=== PATIENT | male | born 1935 | race Caucasian/White ===

== ENCOUNTER 2017-07-04 10:10 | Outpatient (CLI) | payer MEDICARE, SELFPAY ==
[2017-07-04] VITALS (7 sets, daily range): BP systolic 141–181; BP diastolic 52–89; PULSE 54–62; RESP 14–21; TEMP 36; O2SAT 93–99
--- NOTE | 2017-07-04 10:13 | DI.RAD.S_ITS ---
PROCEDURE: PAIN L/S TRANSFORAMINAL INJECT INDICATIONS: Right L4/5 TRANSFORAMINAL INJECTION FINDINGS: Fluoroscopic spot filming was performed to verify placement of spinal needles at the right L4-L5 level(s), as labeled on the films. Appropriate location(s) of the needle tip(s) was confirmed by injection of iodinated contrast. Dictated by: Chris Brooks M.D. on 07/04/2017 at 17:17 Approved by: Chris Brooks M.D. on 07/04/2017 at 17:17
--- NOTE | 2017-07-04 10:55 | P.PCN_ITS ---
Procedures Date/Time Date of procedure: 07/04/17 Time of procedure: 11:41 General Procedure description: PREOP DIAGNOSIS 1. FORMAINAL STENOSIS WITH LE SYMPTOMS POST OP DIAGNOSIS 1. FORMAINAL STENOSIS WITH LE SYMPTOMS PROCEDURES 1. FLUOROSCOPICALLY GUIDED CONTRAST CONTROLLED TRANSFORAMINAL EPIDURAL STEROID INJECTION - RIGHT L4/5 TFESI PHYSICIAN: Delmer Ayala DO INDICATIONS: Delmer is referred by Dr. White for treatment of Foraminal Stenosis with Right LE Symptoms FINDINGS Foraminal Nerve Root Compression secondary to disc disease and facet hypertrophy DESCRIPTION OF PROCEDURE: Following denial of allergy and review of potential side effects and complications, including, but not necessarily limited to, infection, allergic reaction, local tissue breakdown, stroke, temporary or permanent nerve injury, paralysis, and possible , the patient indicated that the patient understood and agreed to proceed. An informed consent document was signed by the patient, witnessed by a nurse, and placed in the patient's chart. Additionally, other treatment options including medications, modalities, and physical therapy were reviewed with the patient. Per the patient request, IV conscious sedation was administered via 3mg of Versed to patient comfort. The patient's vital signs were monitored throughout the procedure by both the nurse and the physician without significant fluctuation. The patient remained conversant throughout the procedure. In the prone position following sterile prep and drape of the lumbar region, the Right L4/5 posterior neuroforamen was identified fluoroscopically. The skin was anesthetized via a 25-gauge 1.5-inch needle with 1% lidocaine solution. At this point, a 25-gauge 3.5-inch spinal needle was atraumatically introduced and advanced under fluoroscopic guidance through the posterior Right L4/5 neuroforamen to approximately the anterior aspect of the canal. Depth was confirmed on lateral view. Following negative aspiration, injection of approximately 1.5 cc of Isovue 200 under live fluoroscopy in the AP view confirmed excellent flow along the nerve root, into the epidural space without vascular or intrathecal uptake observed Radiological data, including multiple fluoroscopic views of the lumbosacral spine, reveal a spinal needle at the Left L4/5 posterior neuroforamen. Subsequent views show flow of contrast material flowing superiorly and inferiorly along the nerve root confirming epidural flow. Subsequently, a test dose of 1.5 cc of 1% lidocaine solution was administered and patient was observed for two minutes for signs or symptoms of complications , including abdominal pain, shortness of breath, bilateral upper or lower extremity weakness, nausea and vomiting, prior to steroid injection. At this point, a total of 3 cc or 20 mg of dexamethasone and 80mg Depo Medrol was injected without incident. The patient was then transferred to the recovery area where they were observed for an appropriate time after the injection. The patient reported a VAS score of 7 prior to the procedure and a post-procedure VAS of 0. Total Fluoroscopy Time: 20.9 seconds Total Conscious Sedation Time: 24min POST OP INSTRUCTIONS The patient was provided a Pain Log to continue to record their response to the target-specific procedure prior to follow-up visit with their referring physician. Additionally, specific post-injection care instructions and a contact number to our office were provided if concerns arise regarding possible complications associated with the procedure are suspected. Delmer Ayala DO Complications: none
[2017-07-04] MEDS: DEXAMETHASONE 10 MG/ML VIAL 20 MG INJ (11:15)
[2017-07-04] MEDS: IOPAMIDOL 15 ML VIAL INJ (11:15)
[2017-07-04] MEDS: MIDAZOLAM 5 MG/5 ML VIAL IV (11:15)
[2017-07-04] MEDS: methylPREDNISolone acetate 80 MG/ML VIAL INJ (11:15)
[2017-07-04] MEDS: BUPIVACAINE 0.25% (PF) 30 ML VIAL INJ (11:15)
== END 2017-07-04 12:15 ==
LOC: RAD 10:12
PROVIDERS: PCP Internal Medicine; Visit Provider Physical Medicine & Rehabilitation
DX: M51.36 Other intervertebral disc degeneration, lumbar region (principal); M99.73 Connective tissue and disc stenosis of intervertebral foramina of lumbar region
CPT/HCPCS: 64483; 99152; J0702; J1040; J1100; J2250

== ENCOUNTER 2017-08-22 12:48 | Outpatient (CLI) | payer MEDICARE, SELFPAY ==
[2017-08-22] VITALS (7 sets, daily range): BP systolic 100–172; BP diastolic 59–81; PULSE 60–67; RESP 16–18; TEMP 36.1; O2SAT 93–98
--- NOTE | 2017-08-22 12:49 | DI.RAD.S_ITS ---
PROCEDURE: PAIN L INTERLAMINAR/CAUDAL INJ INDICATIONS: Status post lumbar fusion with left lower extremity neurogen FINDINGS: Fluoroscopic spot filming was performed to verify placement of spinal needles in the lumbar spine as labeled on the films. Appropriate location(s) of the needle tip(s) was confirmed by injection of iodinated contrast. IMPRESSION: Fluoroscopy guidance for needle placement. Dictated by: Jocelyne Juárez M.D. on 08/22/2017 at 16:09 Approved by: Jocelyne Juárez M.D. on 08/22/2017 at 16:09
--- NOTE | 2017-08-22 14:19 | P.PCN_ITS ---
Procedures Date/Time Date of procedure: 08/22/17 Time of procedure: 14:16 General Procedure description: PROVIDER: Delmer Ayala DO Operative Note PREOP DIAGNOSIS 1. HNP WITH RADICULAR FEATURES, 2. MULTILEVEL CENTRAL STENOSIS, POST OP DIAGNOSIS 1. HNP WITH RADICULAR FEATURES, 2. MULTILEVEL CENTRAL STENOSIS, PROCEDURES 1. FLUORSCOPICALLY GUIDED CONTRAST CONTROLLED INTERLAMINAR EPIDURAL STEROID INJECTION - L4/5 PHYSICIAN: Delmer Ayala DO INDICATIONS Delmer is referred by Dr. White for treatment of Bilateral Foraminal Stenosis L >R LE symptoms. FINDINGS Multilevel Central Spinal Stenosis with Nerve Root Compression DESCRIPTION OF PROCEDURE Fluoroscopically guided, contrast-controlled L4/5 translaminar epidural steroid injection. Following denial of allergy and review of potential side effects and complications, including, but not necessarily limited to, infection, allergic reaction, local tissue breakdown, temporary as well as permanent nerve injury, paralysis, stroke and possible , the patient indicated that the patient understood and agreed to proceed. An informed consent document was signed by the patient, witnessed by a nurse, and placed in the patient's chart. Additionally, other treatment options including modalities, medications, and physical therapy were reviewed with the patient. After review of previous anaesthesic history and IV conscious sedation the patient was deemed safe to proceed with todays procedure with IV conscious sedation as ASA class II designation. Safety time-out was performed to confirm patient ID, procedure to be performed and site of procedure. IV sedation was accomplished with a combination of 3mg of Versed administered by the RN after DO order, titrated to patient comfort during the course of the procedure while the patient remained responsive to all verbal commands. In the prone position, following sterile prep and drape of the lumbar region, the L4/5 translaminar space was identified fluoroscopically. The skin was anesthetized via a 25-gauge, 1.5-inch needle with 1% lidocaine solution. At this point, a 22-gauge short bevel spinal needle was atraumatically introduced and advanced under fluoroscopic guidance into the region of the L4/5 translaminar space. Depth was confirmed on lateral view. Radiological data, including multiple fluoroscopic views of the lumbar spine, reveal a spinal needle at the L4/5 translaminar space. Lateral views then show placement of the needle in the epidural space. Subsequent views show contrast material flowing superiorly and inferiorly in the epidural space. No vascular or intrathecal uptake is observed. At this point, using loss of resistance technique with saline and air, the epidural space was entered. This was confirmed following negative aspiration with injection of approximately 1.5 cc of Isovue 200, showing excellent epidural flow without vascular or intrathecal uptake. At this point, 1 cc of 1 % lidocaine solution combined with 3 cc or 20 mg of dexamethasone and 80mg Depo medrol was injected without incident. The patent tolerated the procedure without signs of symptoms of complications prior to transfer to the recovery area for further monitoring. The patient was then transferred to the recovery area where they were observed for an appropriate period of time after the injection. The patient reported a VAS score of 6 prior to the procedure and a post-procedure VAS of 0. Total Fluoroscopy Time: 11.8 seconds Total Conscious Sedation Time: 24min POST OP INSTRUCTIONS The patient was provided a Pain Log to continue to record their response to the target-specific procedure prior to follow-up visit with their referring physician. Additionally, specific post-injection care instructions and a contact number to our office were provided if concerns arise regarding possible complications associated with the procedure are suspected. Delmer Ayala DO
[2017-08-22] MEDS: MIDAZOLAM 5 MG/5 ML VIAL IV (14:23)
[2017-08-22] MEDS: BUPIVACAINE 0.25% (PF) 30 ML VIAL INJ (14:30)
[2017-08-22] MEDS: methylPREDNISolone acetate 80 MG/ML VIAL INJ (14:30)
[2017-08-22] MEDS: DEXAMETHASONE 10 MG/ML VIAL 20 MG INJ (14:30)
[2017-08-22] MEDS: IOPAMIDOL 15 ML VIAL 3 ML INJ (14:30)
== END 2017-08-22 15:15 ==
LOC: RAD 12:49
PROVIDERS: PCP Internal Medicine; Visit Provider Physical Medicine & Rehabilitation
DX: M51.16 Intervertebral disc disorders with radiculopathy, lumbar region (principal); M48.061 Spinal stenosis, lumbar region without neurogenic claudication; Z98.1 Arthrodesis status
CPT/HCPCS: 62323; 99152; J1040; J1100; J2250

== ENCOUNTER → 2017-08-23 10:11 | Outpatient (CLI) | payer MEDICARE, SELFPAY ==
--- NOTE | 2017-08-23 13:25 | DI.ECHO.S_ITS ---
:Name: KENDALL FRIED Study Date: 08/23/2017 Height: 66 in : :[facility] Exam Location: [facility] Weight: 222 lb : : Gender: Male BSA: 2.1 m2 : :: 1935 Age: 82 yrs BP: 152/60 mmHg: :Reason For Study: TYPING SECTION CHIEF : :Ordering Physician: Geovanna Bach : :[place] Performed By: Tamara Burton : :Referring: Singh White : + + Interpretation Summary 1) Upper normal left ventricular size with mild concentric left ventricular hypertrophy and normal systolic function (EF 60-65)%. 2) Normal right ventricular size and function. 3) The left atrium is severely dilated. 4) There is mild to moderate aortic regurgitation. 5) Aortic root and ascending aorta are moderately dilated at 4.7cm. 6) Compared to the Echo done 10/31/2016, LV is less dilated and EF has improved from 45-50% to 60-65% on this study. Procedure: A two-dimensional transthoracic echocardiogram with color flow and Doppler was performed. The study quality was technically adequate. Comparison is made with the echocardiogram of 10/31/2016. The heart rate ranged between 48-63 bpm during the study. Left Ventricle: There is mild concentric left ventricular hypertrophy. Left ventricular size is at the upper limits of normal. The ejection fraction is estimated to be 60-65%. Left ventricular systolic function is normal without focal wall motion abnormalities. Right Ventricle: The right ventricle is normal in size and function. Atria: The left atrium is severely dilated. The right atrium is mildly dilated. There is no Doppler evidence for an interatrial shunt. Mitral Valve: The mitral valve leaflets appear thickened, but open well. There is trace mitral regurgitation. Aortic Valve: The aortic valve is trileaflet. The aortic valve opens well. There is mild aortic valve sclerosis. There is no aortic valve stenosis. There is mild to moderate aortic regurgitation. Tricuspid Valve: The tricuspid valve leaflets are thin and pliable. There is mild tricuspid regurgitation. The right ventricular systolic pressure is estimated at 31 mmHg assuming a right atrial pressure of 3 mm Hg. Pulmonic Valve: The pulmonic valve is not well visualized. Great Vessels: The aortic root is moderately dilated. The ascending aorta is moderately enlarged. The aortic arch is mildly enlarged. The pulmonary is not well visualized. The IVC is of normal diameter and collapses greater than 50% with a sniff. This suggests a low right atrial pressure of 3 mm Hg. Pericardium/ Pleura There is no pericardial effusion. There is no pleural effusion. MMode/2D Measurements & Calculations LVIDd: 6.0 cm LVOT diam: 2.6 cm LVIDs: 3.4 cm Ao root diam: 4.7 cm FS: 44.2 % asc Aorta Diam: 4.7 cm IVSd: 1.2 cm Ao Arch Diam (distal): 3.2 cm LVPWd: 1.2 cm LV baker. diameter/BSA (cm/m^2): 2.9 LV sys. diameter/BSA (cm/m^2): 1.6 LA A2 area: 26.9 cm2 RA long axis: 7.0 cm LA A4 area: 33.5 cm2 RA area: 24.6 cm2 LA length (vol): 7.8 cm RA vol: 73.7 ml LA vol: 98.5 ml RA : 35.3 ml/m2 LA vol index: 47.1 ml/m2 IVC diam: 1.7 cm RVD1 (basal): 3.4 cm TAPSE: 1.9 cm Doppler Measurements & Calculations Ao V2 max: 199.5 cm/sec LVOT Max Jacobo: 139.4 cm/sec Ao V2 mean: 140.2 cm/sec LV V1 max P.8 mmHg Ao max P.9 mmHg LV V1 VTI: 34.6 cm Ao mean P.5 mmHg GENESIS(I,D): 3.9 cm2 Ao V2 VTI: 46.6 cm GENESIS(V,D): 3.7 cm2 sev ratio: 0.74 GENESIS indexed to BSA (cm^2/m^2): 1.9 MV E max jacobo: 33.8 cm/sec TR max jacobo: 265.0 cm/sec MV A max jacobo: 94.7 cm/sec TR max P.1 mmHg MV E/A: 0.36 Med Peak E' Jacobo: 3.4 cm/sec E/E' med: 10.0 Lat Peak E' Jacobo: 4.6 cm/sec E/E' lat: 7.3 E/e' average: 8.7 MV dec time: 0.28 sec _ Reading Physician:01:25 PM
== END ==
PROVIDERS: PCP Internal Medicine; Visit Provider Internal Medicine Cardiovascular Disease
DX: I42.0 Dilated cardiomyopathy (principal); I35.1 Nonrheumatic aortic (valve) insufficiency
CPT/HCPCS: 93306

== ENCOUNTER 2017-09-13 10:30 | Outpatient (CLI) | payer MEDICARE, SELFPAY ==
[2017-09-13] VITALS (9 sets, daily range): BP systolic 140–175; BP diastolic 39–93; PULSE 48–58; RESP 16–18; TEMP 36.1; O2SAT 95–98
--- NOTE | 2017-09-13 10:33 | DI.RAD.S_ITS ---
PROCEDURE: PAIN L/S FACET INJ/BLK 1ST COLTEN COMPARISON: None. INDICATIONS: Lumbosacral spondylosis status post fusion FINDINGS: Right-sided L3-4 and L4-5 facet needle tip localization is documented IMPRESSION: Successful facet joint localization on the right at L3-4 and L4-5-4 reported anticipated epidural steroid injection. Dictated by: Clemente Teixeira M.D. on 09/13/2017 at 13:39 Approved by: Clemente Teixeira M.D. on 09/13/2017 at 13:43
--- NOTE | 2017-09-13 11:38 | PM.PROC.1 ---
Procedures Date/Time Date of procedure: 09/13/17 Time of procedure: 11:38 General Procedure description: PREOP DIAGNOSIS 1. FACET ARTHROPATHY 2. AXIAL LBP 3. MULTILEVEL DDD POST OP DIAGNOSIS 1. FACET ARTHROPATHY 2. AXIAL LBP 3. MULTILEVEL DDD PROCEDURES 1. FLUORSCOPICALLY GUIDED CONTRAST CONTROLLED FACET JOINT INJECTIONS BILATERAL L3/4, L4/5 PHYSICIAN: Delmer Ayala DO INDICATIONS: Delmer is referred by for treatment of Axial LBP FINDINGS Multilevel Facet Arthropathy with Clinically significant axial LBP DESCRIPTION OF PROCEDURE Fluoroscopically guided, contrast-controlled bilateral L3/4, L4/5 facet joint injections. Following denial of allergy and review of potential side effects and complications, including, but not necessarily limited to, infection, allergic reaction, local tissue breakdown, stroke, temporary or permanent nerve injury, paralysis, and possible , the patient indicated that the patient understood and agreed to proceed. An informed consent document was signed by the patient, witnessed by a nurse, and placed in the patient's chart. Additionally, other treatment options including medications, modalities, and physical therapy were reviewed with the patient. After review of previous anaesthesic history and IV conscious sedation the patient was deemed safe to proceed with todays procedure with IV conscious sedation as ASA class II designation. Safety time-out was performed to confirm patient ID, procedure to be performed and site of procedure. IV sedation was accomplished with a combination of 3mg of Versed was administered by the RN after DO order, titrated to patient comfort during the course of the procedure while the patient remained responsive to all verbal commands. In the prone position, following sterile prep and drape of the lumbar region, the posterior aspect of the L3/4, L4/5 facet joints were identified fluoroscopically. The skin was anesthetized via a 25-gauge 1.5-inch needle with 1% lidocaine solution into the corresponding facet joints. At this point, a 22-gauge 3.5-inch spinal needle was atraumatically introduced and advanced under fluoroscopic guidance into the corresponding facet joints. Following negative aspiration, injections of approximately 0.2-cc of Isovue 200 confirmed interarticular placement without vascular uptake. The identical procedure was then performed at the L3/4, L4/5 facet joints on the left. Radiological data, including multiple fluoroscopic views of the lumbosacral spine, reveal a spinal needle at the L3/4, L4/5 facet joints bilaterally. Subsequent views show flow of contrast material both superiorly and inferiorly within the joint space without vascular or intrathecal uptake. At this point, a total of 0.5 cc including a mixture of 0.25 cc Marcaine and 0.25 cc betamethasone was injected without complication into each of the corresponding facet joints. The procedure tolerated the procedure well without signs or symptoms of complications prior to transfer to the recovery area continued monitoring without incident. The patient was then transferred to the recovery area where they were observed for an appropriate period of time after the injection. The patient reported a VAS score of 7 prior to the procedure and a post-procedure VAS of 0. Total Fluoroscopy Time: 20.3 seconds Total Conscious Sedation Time: 24min POST OP INSTRUCTIONS The patient was provided a Pain Log to continue to record their response to the target-specific procedure prior to follow-up visit with their referring physician. Additionally, specific post-injection care instructions and a contact number to our office were provided if concerns arise regarding possible complications associated with the procedure are suspected. Delmer Ayala, Complications: none
[2017-09-13] MEDS: MIDAZOLAM 5 MG/5 ML VIAL IV (11:50)
[2017-09-13] MEDS: BUPIVACAINE 0.5% (PF) VIAL 5 ML INJ (12:00)
[2017-09-13] MEDS: LIDOCAINE 1% 20 ML INJ 10 ML INJ (12:00)
[2017-09-13] MEDS: IOPAMIDOL 15 ML VIAL 3 ML INJ (12:00)
[2017-09-13] MEDS: BETAMETHASONE 30 MG/5 ML MDV 12 MG INJ (12:01)
== END 2017-09-13 12:52 | disposition home or self-care (01) ==
LOC: RAD 10:32
PROVIDERS: PCP Internal Medicine; Visit Provider Physical Medicine & Rehabilitation
DX: M47.816 Spondylosis without myelopathy or radiculopathy, lumbar region (principal); M51.36 Other intervertebral disc degeneration, lumbar region; M54.5 Low back pain; Z98.1 Arthrodesis status
CPT/HCPCS: 64493; 64494; 99152; J0702; J2250

== ENCOUNTER 2018-07-19 08:35 | Outpatient (CLI) | payer MEDICARE, SELFPAY ==
[2018-07-19] VITALS (8 sets, daily range): BP systolic 145–185; BP diastolic 50–88; PULSE 56–63; RESP 16–20; TEMP 35.9; O2SAT 92–97
--- NOTE | 2018-07-19 08:37 | DI.RAD.S_ITS ---
PROCEDURE: PAIN L/S FACET INJ/BLK 1ST COLTEN COMPARISON: None. INDICATIONS: SPONDYLOSIS FINDINGS: 6 intraoperative fluoroscopy images demonstrate needle placement under fluoroscopy. IMPRESSION: Fluoroscopy for pain management. Dictated by: Jocelyne Juárez M.D. on 07/19/2018 at 12:25 Approved by: Jocelyne Juárez M.D. on 07/19/2018 at 12:25
[2018-07-19] MEDS: MIDAZOLAM 5 MG/5 ML VIAL IV (09:44)
[2018-07-19] MEDS: fentaNYL 100 MCG/2 ML INJ 50 MCG IV (09:44)
[2018-07-19] MEDS: IOPAMIDOL 15 ML VIAL 3 ML INJ (09:55)
[2018-07-19] MEDS: LIDOCAINE 1% 20 ML INJ 10 ML INJ (09:55)
[2018-07-19] MEDS: BUPIVACAINE 0.5% (PF) VIAL 2 ML INJ (09:57)
[2018-07-19] MEDS: BETAMETHASONE 30 MG/5 ML MDV 12 MG INJ (09:57)
--- NOTE | 2018-07-19 09:59 | PC.NURSE ---
pt tolerated procedure well. Pt able to get off the table with standby assist. Transferred pt awake and alert via wheelchair to pre procedure room for continued monitoring with Gilda YUAN.
--- NOTE | 2018-07-19 10:06 | PM.PROC.1 ---
Procedures Date/Time Date of procedure: 07/19/18 Time of procedure: 10:06 General Procedure description: POST OP DIAGNOSIS 1. FACET ARTHROPATHY PROCEDURES 1. BILATERAL L3, L4 AND L5 MB BLOCKS PHYSICIAN: Delmer Ayala DO INDICATIONS Delmer is referred by Dr. White for treatment of Bilateral Axial LBP. DESCRIPTION OF PROCEDURE Fluoroscopically guided, contrast-controlled bilateral L3, L4 AND L5 medial branch blocks with 0.5cc of 0.5% Marcaine. Following review of allergy and review of potential side effects and complications, including, but not necessarily limited to, infection, allergic reaction, local tissue breakdown, nerve injury, paralysis, stroke and possible , the patient indicated that the patient understood and agreed to proceed. An informed consent document was signed by the patient, witnessed by a nurse, and placed in the patient's chart. After review of previous anaesthesic history and IV conscious sedation the patient was deemed safe to proceed with todays procedure with IV conscious sedation as ASA class II designation. Safety time-out was performed to confirm patient ID, procedure to be performed and site of procedure. IV sedation was accomplished with a combination of 3mg of Versed and 50mcg of Fentanyl was administered by the RN after DO order, titrated to patient comfort during the course of the procedure while the patient remained responsive to all verbal commands In the prone position, following sterile prep and drape of the lumbar region, the right L3, L4 AND L5 anatomical location of the medial branch of the dorsal ramus was identified fluoroscopically. Subsequently an anesthetic skin wheal using 1% lidocaine solution was initiated at each of the anatomical spots. Subsequently then a 22-gauge 3.5-inch spinal needle was atraumatically introduced and advanced under fluoroscopic guidance at each of the corresponding sites at the right L3, L4 AND L5 MB. After negative aspiration, 0.2 cc of Isovue 200 was injected, confirming placement without vascular or intrathecal uptake. Subsequently then 0.5 cc of 0.5% Marcaine solution was injected at each of the corresponding sites at the Right L3, L4 AND L5 medial branch locations. The identical procedure was replicated on the left. The patient tolerated the procedure well without signs or symptoms of complications. The patient tolerated the procedure well without signs or symptoms of complications prior to transfer to the recovery area continued monitoring without incident. Post-procedure, the patient was monitored initiating provocative activities to measure the amount of relief from block of the facetogenic pain. The patient reported a VAS of 7 prior to the procedure and a post-procedure VAS of 1. It has been a pleasure to assist in the diagnostic and therapeutic care of your patient. Total Fluoroscopy Time: 24.8 seconds Total Conscious Sedation Time: 24min POST OP INSTRUCTIONS The patient was provided with a Pain Log to complete over the next several hours and subsequent days prior to the patient's follow up with the ordering physician. If the patient has hotel services sales representative relief to the solution applied, then they may be a candidate for medial branch rhizotomy. The patient is aware, was provided, once again, with a Pain Log and will follow up with the referring physician for review and clinical correlation Delmer Ayala DO Complications: none
--- NOTE | 2018-07-19 10:10 | PC.NURSE ---
ACCEPTED CARE OF PT IN POST PROC AREA IN STABLE CONDITION
== END 2018-07-19 10:39 | disposition home or self-care (01) ==
PROVIDERS: PCP Internal Medicine; Visit Provider Physical Medicine & Rehabilitation
DX: M47.816 Spondylosis without myelopathy or radiculopathy, lumbar region (principal)
CPT/HCPCS: 64493; 64494; 99152; J0702; J2250; J3010

== ENCOUNTER 2018-08-28 07:50 | Outpatient (CLI) | payer MEDICARE, SELFPAY ==
[2018-08-28] VITALS (11 sets, daily range): BP systolic 148–197; BP diastolic 50–87; PULSE 57–60; RESP 16–18; TEMP 36.2; O2SAT 92–96
--- NOTE | 2018-08-28 07:52 | DI.RAD.S_ITS ---
PROCEDURE: PAIN L/S MED/LAT N RFA INDICATIONS: SPINAL STENOSIS FINDINGS: Fluoroscopic spot filming was performed to verify placement of spinal needles at the L3, L4 and L5 level(s), as labeled on the films. Appropriate location(s) of the needle tip(s) was confirmed by injection of iodinated contrast. IMPRESSION: Fluoroscopy support for poor management. Dictated by: Jocelyne Juárez M.D. on 08/28/2018 at 10:36 Approved by: Jocelyne Juárez M.D. on 08/28/2018 at 10:36
--- NOTE | 2018-08-28 08:41 | P.PCN_ITS ---
Procedures Date/Time Date of procedure: 08/28/18 Time of procedure: 08:40 General Procedure description: PREOP DIAGNOSIS 1. RECALCITRANT FACET ARTHROPATHY, POST OP DIAGNOSIS 1. RECALCITRANT FACET ARTHROPATHY PROCEDURES 1. BILATERAL L3, L4 AND L5 MEDIAL BRANCH RADIOFREQUENCY NEUROTOMY PHYSICIAN: Delmer Ayala DO INDICATIONS: Delmer is referred by Dr. White for treatment of facet arthropathy. DESCRIPTION OF PROCEDURE Bilateral L3, L4 and L5 medial branch radiofrequency neurotomy The patient is well known to this clinic having undergone previous facet injections with good but temporary relief. The patient has experienced appropriate, concordant relief with previous facet and median branch blocks but the patient's pain has been recalcitrant to further conservative measures. Therefore, based upon the patient's relief and persistent symptoms, the patient is considered an appropriate candidate for facet rhizotomy. All of the patient's questions regarding the risks versus benefits of the procedure, including, but n ot limited to, bleeding, infection, temporary as well as lasting nerve injury, paralysis, stroke, and , as well treatment alternatives were answered to satisfaction. After obtaining informed consent, denial of pertinent drug allergies, as well as being made aware of the potential risks of bleeding, infection, spinal cord trauma, paralysis, temporary and permanent nerve damage, seizure, stroke, and possible , the patient was brought to the fluoroscopy suite and positioned prone on the fluoroscopy table. The lumbar region was prepped with Betadine and covered with a fenestrated drape in the usual sterile fashion. Appropriate monitors applied including pulse oximeter, pulse, and blood pressure for regular monitoring throughout the procedure. After review of previous anaesthesic history and IV conscious sedation the patient was deemed safe to proceed with todays procedure with IV conscious sedation as ASA class II designation. Safety time-out was performed to confirm patient ID, procedure to be performed and site of procedure. IV sedation was accomplished with a combination of 2mg of Versed and 50mcg of Fentanyl administered by the RN after DO order, titrated to patient comfort during the course of the procedure while the patient remained responsive to all verbal commands. After local infiltration using 1% lidocaine, under fluoroscopic guidance, a 10- cm RF insulated needle with a 10-mm active tip was positioned parallel to the junction of the right the superior articulating process where the L5 medial branch resides. Needle placement was confirmed with sensory stimulation at 50 Hz, with motor stimulation of .5v on the right which produced local stimulation without radicular component. The stimulation was then increased to 1.5v with, once again, only local multifidus stimulation without radicular component. This was then followed by two discreet lesions performed at 80 degrees Celsius for 90 seconds each. The needle was then removed and the identical procedure was performed along the length of the right L4 medial branch with motor stimulation at .7v on the right. The identical procedure was once again performed along the length of the right L3 and medial branch with motor stimulation of .5v on the right. The identical procedures were repeated on the left. The patient tolerated the procedure well without signs or symptoms of complicat ions prior to transfer to the recovery area continued monitoring without incident. The patient was then transferred to the recovery area where they were observed for an appropriate period of time after the injection. The patient reported a VAS score of 9 prior to the procedure and a post-procedure VAS of 0. Total Fluoroscopy Time: 22.7 seconds Total Conscious Sedation Time: 34min POST OP INSTRUCTIONS The patient was provided a Pain Log to continue to record the patient's response to the target-specific procedure prior to the patient's follow-up visit with the referring physician. Additionally, specific post-injection care instructions and a contact number to our office were provided if concerns arise regarding possible complications associated with the procedure are suspected. Delmer Ayala DO
[2018-08-28] MEDS: fentaNYL 100 MCG/2 ML INJ 50 MCG IV (08:46)
[2018-08-28] MEDS: MIDAZOLAM 5 MG/5 ML VIAL IV (08:46)
[2018-08-28] MEDS: LIDOCAINE 1% 20 ML INJ 10 ML INJ (08:55)
[2018-08-28] MEDS: BUPIVACAINE 0.5% (PF) VIAL 2 ML INJ (08:55)
[2018-08-28] MEDS: BETAMETHASONE 30 MG/5 ML MDV 12 MG INJ (08:55)
--- NOTE | 2018-08-28 09:25 | PC.NURSE ---
ASSISTING PT OFF TABLE AND TRANSPORTING TO POST PROC AREA IN STABLE CONDITION
--- NOTE | 2018-08-28 09:30 | PC.NURSE ---
Pt arrived from procedure awake and alert and able to move from W/C to Chair with standby assist. Resumed monitoring from Gilda YUAN.
== END 2018-08-28 09:54 ==
LOC: RAD 07:52
PROVIDERS: PCP Internal Medicine; Visit Provider Physical Medicine & Rehabilitation
DX: M48.061 Spinal stenosis, lumbar region without neurogenic claudication (principal); M47.817 Spondylosis without myelopathy or radiculopathy, lumbosacral region
CPT/HCPCS: 64635; 64636; 99152; 99153; J0702; J2250; J3010

== ENCOUNTER → 2018-09-12 12:25 | Outpatient (CLI) | payer MEDICARE, SELFPAY ==
--- NOTE | 2018-09-12 | DI.ECHO.S_ITS ---
[facility]---------+ [facility] +---------+ : : [address] : [place] : : : : [id number] : : : : Phone: [phone] +---------+ Echocardiogram Report + + :Name: KENDALL FRIED Study Date: 09/12/2018 Height: 66 in : :[facility] Exam Location: [facility] Weight: 227 lb : : Gender: Male BSA: 2.1 m2 : :: 1935 Age: 83 yrs BP: 168/55 mmHg: :Reason For Study: DISORDERS OF ARTERIES : : Performed By: Power Herrera : :Referring: ANDERS DALAL : + + Interpretation Summary 1) Mildly enlarged left ventricle with normal systolic function (EF 55-60%). 2) Normal right ventricular size and function. 3) The left atrium is severely dilated. 4) There is mild to moderate aortic regurgitation. 5) The aortic root is moderately dilated at 4.8cm. The ascending aorta is moderately enlarged at 4.7cm. 6) Compared to the Echo done 08/23/2017, no significant change. Procedure: A two-dimensional transthoracic echocardiogram with color flow and Doppler was performed. The study quality was technically difficult. Comparison is made with the echocardiogram of 08/23/17. The patient was in normal sinus rhythm during the exam. The patient had occasional PVCs during the exam. Left Ventricle: The left ventricle is mildly dilated. Left ventricular wall thickness is mildly increased. The ejection fraction is estimated to be 55- 60%. Left ventricular systolic function is normal without focal wall motion abnormalities. Right Ventricle: The right ventricle is normal in size and function. Atria: The left atrium is severely dilated. The right atrium is moderately dilated. The interatrial septum is intact with no evidence for an atrial septal defect. Mitral Valve: The mitral valve is normal in structure and function. There is trace mitral regurgitation. Aortic Valve: The aortic valve is not well visualized. There is no aortic valve stenosis. There is mild to moderate aortic regurgitation. Tricuspid Valve: The tricuspid valve is normal in structure and function. There is trace tricuspid regurgitation. The right ventricular systolic pressure is estimated to be at least 30 mmHg based on an estimated right atrial pressure of 3 mm Hg. Pulmonic Valve: The pulmonic valve is not well seen, but is grossly normal. There is trace pulmonic regurgitation. Great Vessels: The aortic root is moderately dilated. The ascending aorta is moderately enlarged. The pulmonary artery is normal size. The IVC is of normal diameter and collapses greater than 50% with a sniff. This suggests a low right atrial pressure of 3 mm Hg. Pericardium/ Pleura There is no pericardial effusion. There is no pleural effusion. MMode/2D Measurements & Calculations LVIDd: 6.7 cm LVOT diam: 2.4 cm LVIDs: 5.0 cm Ao root diam: 4.8 cm FS: 25.3 % Aortic Jxn: 4.4 cm EPSS: 0.79 cm asc Aorta Diam: 4.7 cm IVSd: 1.4 cm Ao Arch Diam (Prox Trans): 2.8 cm LVPWd: 1.1 cm LV baker. diameter/BSA (cm/m^2): 3.2 LV sys. diameter/BSA (cm/m^2): 2.4 LA A2 area: 36.9 cm2 RA long axis: 6.9 cm LA A4 area: 26.5 cm2 RA area: 27.8 cm2 LA length (vol): 6.6 cm RA vol: 95.3 ml LA vol: 126.3 ml RA : 45.2 ml/m2 LA vol index: 59.8 ml/m2 IVC diam: 1.7 cm Doppler Measurements & Calculations Ao V2 max: 208.5 cm/sec LVOT Max Jacobo: 116.7 cm/sec Ao V2 mean: 156.1 cm/sec LV V1 max P.4 mmHg Ao max P.4 mmHg LV V1 VTI: 31.6 cm Ao mean P.7 mmHg GENESIS(I,D): 3.2 cm2 Ao V2 VTI: 45.0 cm GENESIS(V,D): 2.6 cm2 sev ratio: 0.70 GENESIS indexed to BSA (cm^2/m^2): 1.5 AI P1/2t: 466.5 msec AI dec slope: 263.3 cm/sec2 MV E max jacobo: 28.3 cm/sec TR max jacobo: 257.2 cm/sec MV A max jacobo: 88.7 cm/sec TR max P.5 mmHg MV E/A: 0.32 PA V2 max: 103.8 cm/sec Med Peak E' Jacobo: 3.6 cm/sec PA V2 mean: 79.3 cm/sec E/E' med: 7.8 PA mean P.7 mmHg Lat Peak E' Jacobo: 4.4 cm/sec PA pr(Accel): 35.7 mmHg E/E' lat: 6.4 PA Accel Time: 0.10 sec E/e' average: 7.1 MV dec time: 0.13 sec SV(LVOT): 145.3 ml Reading Physician:02:57 PM
--- NOTE | 2018-09-12 12:27 | DI.RAD.S_ITS ---
PROCEDURE: XR HIP W PEL IF DONE LT MIN 4V INDICATIONS: right hip pain TECHNIQUE: AP pelvis with lateral view(s) of the bilateral hip(s), 3 views total. COMPARISON: [facility], XA, PAIN L/S MED/LAT N RFA, 08/28/2018, 8:54. FINDINGS: Bones: No fractures or dislocations. Note is made of a symmetric minimal degree of hip joint osteoarthritis. Prior spine fusion between L5-S1 appears present, partially visualized. Pelvic ring appears intact. No suspicious bony lesions. Soft tissues: The visualized bowel gas pattern is normal. No suspicious soft tissue calcifications. IMPRESSION: No trauma to the pelvis or hips appears present. Minimal degenerative hip joint osteoarthritis bilaterally. Prior spine fusion procedure at the L5-S1 area of the lumbosacral spine. Dictated by: Clemente Teixeira M.D. on 09/12/2018 at 13:40 Approved by: Clemente Teixeira M.D. on 09/12/2018 at 13:41
--- NOTE | 2018-09-12 12:27 | DI.RAD.S_ITS ---
PROCEDURE: XR KNEE RT 3V INDICATIONS: right knee pain TECHNIQUE: 3 views of the knee were acquired. COMPARISON: [facility], , KNEE 1-2 VIEWS RIGHT, 04/04/2017, 13:27. FINDINGS: Bones: No fractures or dislocations but there is a finding of medial compartment right knee hemiarthroplasty.. No suspicious bony lesions. Soft tissues: No joint effusion. No suspicious soft tissue calcifications. IMPRESSION: Medial right knee hemiarthroplasty procedure. Dictated by: Clemente Teixeira M.D. on 09/12/2018 at 13:41 Approved by: Clemente Teixeira M.D. on 09/12/2018 at 13:41
== END ==
PROVIDERS: PCP Internal Medicine; Visit Provider Internal Medicine Cardiovascular Disease
DX: I35.1 Nonrheumatic aortic (valve) insufficiency (principal); I77.89 Other specified disorders of arteries and arterioles; M25.561 Pain in right knee; M25.551 Pain in right hip; Z98.1 Arthrodesis status; Z96.651 Presence of right artificial knee joint
CPT/HCPCS: 73522; 73562; 93306

== ENCOUNTER → 2019-03-12 14:12 | Outpatient (CLI) | payer MEDICARE, SELFPAY ==
--- NOTE | 2019-03-12 | DI.ECHO.S_ITS ---
[facility] +---------+ [facility] +---------+ : : [address] : [place] : : : : [id number] : : : : Phone: [phone]+ Echocardiogram Report + + :Name: KENDALL FRIED Study Date: 03/12/2019 Height: 66 in : :[facility] Weight: 230 lb : : Gender: Male BSA: 2.1 m2 : :: 1935 Age: 83 yrs BP: 130/68 mmHg: :Reason For Study: other specified disorders of arteries and : :arteriols : :Ordering Physician: Anders Bach : :[place] Performed By: BINF : :Referring: ANDERS DALAL : + + Interpretation Summary 1) Mildly enlarged left ventricle with normal systolic function (EF 60-65%). 2) Normal right ventricular size and function. 3) There is mild to moderate aortic regurgitation. 4) The ascending aorta is moderately enlarged at 4.7cm. 5) Compared to the Echo done 09/12/2018, no significant change. Procedure: The study quality was technically adequate. A two-dimensional transthoracic echocardiogram with color flow and Doppler was performed. Comparison is made with the echocardiogram of 09/12/2018. The patient was in normal sinus rhythm during the exam. Left Ventricle: The left ventricle is mildly dilated. Left ventricular wall thickness is mildly increased. The ejection fraction is estimated to be 60- 65%. Diastolic function could not be accurately assessed due to unobtainable data. Right Ventricle: The right ventricle is normal size. Visually normal systolic function. Atria: The left atrium is moderately dilated. The right atrium is mildly dilated. There is no Doppler evidence for an interatrial shunt. Mitral Valve: The mitral valve leaflets are slightly calcified. There is trace mitral regurgitation. Aortic Valve: The aortic valve is trileaflet. The aortic valve opens well. There is no aortic valve stenosis. There is mild to moderate aortic regurgitation. Tricuspid Valve: The tricuspid valve is normal in structure and function. There is trace tricuspid regurgitation. Pulmonary artery pressures cannot be estimated because of the lack of a measurable TR jet velocity. Pulmonic Valve: The pulmonic valve is not well visualized. There is trace pulmonic regurgitation. Great Vessels: The aortic root is mildly dilated. The ascending aorta is moderately enlarged. The IVC is of normal diameter and collapses greater than 50% with a sniff. This suggests a low right atrial pressure of 3 mm Hg. Pericardium/ Pleura There is no pericardial effusion. MMode/2D Measurements & Calculations LVIDd: 6.4 cm LVOT diam: 2.3 cm LVIDs: 4.0 cm Ao root diam: 3.8 cm FS: 37.4 % asc Aorta Diam: 4.7 cm IVSd: 1.1 cm Ao Arch Diam (Prox Trans): 4.1 cm LVPWd: 1.2 cm LV baker. diameter/BSA (cm/m^2): 3.0 LV sys. diameter/BSA (cm/m^2): 1.9 LA A2 area: 27.3 cm2 RA long axis: 6.3 cm LA A4 area: 22.4 cm2 RA area: 24.8 cm2 LA length (vol): 6.0 cm RA vol: 83.5 ml LA vol: 86.4 ml RA : 39.3 ml/m2 LA vol index: 40.7 ml/m2 IVC diam: 1.6 cm RVD1 (basal): 3.4 cm RVD2 (mid): 2.9 cm Doppler Measurements & Calculations Ao V2 max: 190.4 cm/sec LVOT Max Jacobo: 151.9 cm/sec Ao V2 mean: 129.8 cm/sec LV V1 max P.2 mmHg Ao max P.5 mmHg LV V1 VTI: 32.0 cm Ao mean P.8 mmHg GENESIS(I,D): 3.4 cm2 Ao V2 VTI: 37.4 cm GENESIS(V,D): 3.2 cm2 sev ratio: 0.85 GENESIS indexed to BSA (cm^2/m^2): 1.6 AI P1/2t: 561.9 msec AI dec slope: 217.2 cm/sec2 Med Peak E' Jacobo: 4.7 cm/sec PA V2 max: 91.9 cm/sec Lat Peak E' Jacobo: 9.1 cm/sec PA V2 mean: 62.7 cm/sec PA mean P.8 mmHg PA pr(Accel): 11.6 mmHg PA Accel Time: 0.14 sec SV(LVOT): 127.3 ml Reading Physician:11:34 AM
== END ==
PROVIDERS: PCP Internal Medicine; Referring Provider Internal Medicine Cardiovascular Disease; Visit Provider Internal Medicine Cardiovascular Disease
DX: I35.1 Nonrheumatic aortic (valve) insufficiency (principal); I77.89 Other specified disorders of arteries and arterioles
CPT/HCPCS: 93306

== ENCOUNTER → 2019-03-30 07:51 | Outpatient (CLI) | payer MEDICARE, SELFPAY ==
[2019-03-30 09:34] LABS: Add Manual Diff / Slide Review NO; Basophils Absolute Auto 0 /uL (0-100); Basophils Percent Auto 0.6 % (0-2); Eosinophils Absolute Auto 300 /uL (0-450); Eosinophils Percent Auto 5.6 % (2-4); Hematocrit 37.7 % (41-53); Hemoglobin 13.6 g/dL (13.5-17.5); Lymphocytes Absolute Auto 1900 /uL (1100-4500); Mean Corpuscular Hemoglobin 32.2 PG (26-34); Mean Corpuscular Volume 89.4 fL (80-100); Monocytes Absolute Auto 500 /uL (0-900); Monocytes Percent Auto 8.8 % (3-14); Neutrophils Absolute Auto 2900 /uL (1500-7000); Platelet Count 241 X10^3/uL (150-400); Red Blood Cell Count 4.22 X10^6/uL (4.5-5.9); Red Cell Distribution Width 12.8 % (11.6-14.8); White Blood Cell Count 5.6 X10^3/uL (4.5-11.0)
[2019-03-30 10:00] LABS: Blood Urea Nitrogen 16 mg/dL (9-20); Carbon Dioxide 28 mmol/L (22-32); Chloride 96 mmol/L (98-107); Cholesterol 95 mg/dL (140-199); Estimated Glomerular Filt Rate > 60.0 mL/min (>60); Glucose 165 mg/dL (80-110); HDL Cholesterol 29 mg/dL (40-60); HEMOLYSIS < 15 (0-50); LDL Cholesterol Calculated 38 mg/dL (<100); Potassium 4.6 mmol/L (3.4-5.1); Sodium 135 mmol/L (137-145); Triglycerides 139 mg/dL (35-150)
== END ==
PROVIDERS: PCP Internal Medicine; Referring Provider Internal Medicine Cardiovascular Disease; Visit Provider Internal Medicine Cardiovascular Disease
DX: I10 Essential (primary) hypertension (principal); E78.5 Hyperlipidemia, unspecified
CPT/HCPCS: 36415; 80048; 80061; 85025

== ENCOUNTER → 2019-07-25 09:22 | Outpatient (CLI) | payer MEDICARE, SELFPAY ==
--- NOTE | 2019-07-25 09:24 | DI.RAD.S_ITS ---
PROCEDURE: XR LUMBAR SPINE MIN 4V INDICATIONS: s/p fusion with SI pain TECHNIQUE: 5 views of the lumbar spine acquired. COMPARISON: [facility], CR, XR LUMBAR SPINE 2-3V, 06/12/2017, 9:25. FINDINGS: Bones: 5 nonrib-bearing vertebrae are present. Mild dextroscoliosis centered at the L2-L3 level. Posterior/interbody fusion redemonstrated at the L5-S1 level with fixation hardware and disc spacer in expected unchanged positions. Grade 1 retrolisthesis L2-L3 unchanged. Multilevel disc degeneration redemonstrated, severe at the L2-L3 and to lesser degree at the L3-L4 levels. Moderate L3-L4, L4-L5 and L5-S1 facet joint arthropathy. No pars interarticularis defects. No vertebral body compression fractures. No suspicious bony lesions. Soft tissues: Overlying bowel gas pattern is normal. No suspicious soft tissue calcifications. Vascular calcifications indicate atherosclerosis. IMPRESSION: 1. Stable postsurgical sequelae and multilevel spondylosis similar to prior exam dated 06/12/17. Dictated by: Fer Sepulveda [facility] Interpreted: Sole Alvarez MD on 07/25/2019 at 10:00 Approved by: Sole Alvarez MD, PhD on 07/25/2019 at 13:39
== END ==
PROVIDERS: PCP Internal Medicine; Referring Provider Physical Medicine & Rehabilitation; Visit Provider Physical Medicine & Rehabilitation
DX: M53.3 Sacrococcygeal disorders, not elsewhere classified (principal); M47.26 Other spondylosis with radiculopathy, lumbar region; M47.27 Other spondylosis with radiculopathy, lumbosacral region; M41.86 Other forms of scoliosis, lumbar region; Z98.1 Arthrodesis status
CPT/HCPCS: 72110

== ENCOUNTER → 2019-09-02 08:48 | Outpatient (CLI) | payer MEDICARE, SELFPAY ==
[2019-09-03 20:32] LABS: COVID19 Sendout Not Detected (Not Detect)
== END ==
PROVIDERS: PCP Internal Medicine; Visit Provider Physician Assistant
DX: Z01.812 Encounter for preprocedural laboratory examination (principal)
CPT/HCPCS: 87635

== ENCOUNTER 2019-09-05 12:57 | Outpatient (CLI) | payer MEDICARE, SELFPAY ==
[2019-09-05] VITALS (7 sets, daily range): BP systolic 132–160; BP diastolic 45–105; PULSE 62–69; RESP 15–17; TEMP 37.1; O2SAT 93–97
--- NOTE | 2019-09-05 13:00 | DI.RAD.S_ITS ---
PROCEDURE: PAIN SI JOINT INJECTION COLTEN COMPARISON: None. INDICATIONS: SACROCOCCYGEAL DISORDER FINDINGS: Fluoroscopic spot filming was performed to verify placement of spinal needles at the right sacroiliac joint level(s), as labeled on the films. Appropriate location(s) of the needle tip(s) was confirmed by injection of iodinated contrast. Dictated by: Chris Brooks M.D. on 09/05/2019 at 15:14 Approved by: Chris Brooks M.D. on 09/05/2019 at 15:14
[2019-09-05] MEDS: MIDAZOLAM 5 MG/5 ML VIAL IV (13:55)
[2019-09-05] MEDS: fentaNYL 100 MCG/2 ML INJ 50 MCG IV (13:55)
[2019-09-05] MEDS: IOPAMIDOL 15 ML VIAL 3 ML INJ (14:03)
[2019-09-05] MEDS: BETAMETHASONE 30 MG/5 ML MDV 12 MG INJ (14:04)
[2019-09-05] MEDS: BUPIVACAINE 0.5% (PF) VIAL 5 ML INJ (14:04)
--- NOTE | 2019-09-05 14:16 | PM.PROC.IR.1 ---
Date/Time/Diagnoses Date of procedure: 09/05/19 Time of procedure: 14:16 Pre-procedure diagnosis: Sacroiliac joint pain/DJD Post-procedure diagnosis: same Procedure Notes Procedure: Fluoroscopic guided contrast controlled bilateral sacroiliac joint injection Indications: Delmer is referred by Dr. White for treatment of bilateral sacroiliac joint DJD Physician: Delmer Ayala Total Fluoroscopy time (seconds): 10 Total sedation minutes: 11 Complications: none Procedure in detail & Post-procedure care: Description of procedure Fluoroscopic guided, contrast controlled bilateral sacroiliac joint injection Following review of allergies and review of potential side effects and complications, including, but not necessarily limited to, infection, allergic reaction, local tissue breakdown, temporary as well as permanent nerve injury, paralysis, stroke and possible , the patient indicated that they understood and agreed to proceed. An informed consent was signed by the patient, witnessed by a nurse, and placed in the patient's chart. Additionally, other treatment options including modalities, medications, and physical therapy were reviewed with the patient. After review of previous anaesthesic history and IV conscious sedation the patient was deemed safe to proceed with today?s procedure with IV conscious sedation as ASA class II designation. Safety time-out was performed to confirm patient ID, procedure to be performed and site of procedure. IV sedation was accomplished with a combination of 2mg Versed and 50mcg of Fentanyl were administered by the RN after DO order, titrated to patient comfort during the course of the procedure while the patient remained responsive to all verbal commands In the prone position following sterile prep and drape of the pelvic region, the hyper lucency on in the inferior aspect of the sacroiliac joint was identified fluoroscopically the skin was anesthetized be a 25 gauge 1 eventual with approximately 2 cc of 1% lidocaine solution. At this point, a 22 gauge 3 in spinal needle was atraumatically introduced and advanced under fluoroscopic guidance into the inferior aspect of the right sacroiliac joint. Following negative aspiration, approximately 0.3 cc of [id number]-300 was injected confirming intra-articular placement without vascular uptake. Radiographic data, including multiple fluoroscopic views of the pelvis, reveals a spinal needle in the sacroiliac joint hyper lucent zone. Subsequent view show flow contrast tear superiorly and inferiorly within the joint capsule without vascular intrathecal uptake. At this point a total of 1cc of 0.5% Marcaine was combined with 1cc of 6 mg of betamethasone was injected without incident. Attention was then refocused the left sacroiliac joint where the procedure was replicated. The procedure tolerated the procedure well without signs or symptoms of complications prior to transfer to the recovery area continued monitoring without incident. The patient was then transferred to the recovery area with a bur observed for an appropriate time after the injection. The patient reverted a vas score of 7 prior to the procedure and post-procedure vas of 1. Postop instructions The patient was provided with a pain like to continue to record the patient's response to the target specific procedure prior to the patient's follow-up visit with the referring physician. Additionally, specific post injection care instructions and a contact number to our office were provided if concerns arise regarding the possible complications associated with procedure are suspected.
--- NOTE | 2019-09-05 14:24 | PC.NURSE ---
returned to pre proce room by . Stable transfer from to chair. monitoring resumed
--- NOTE | 2019-09-05 15:41 | PC.NURSE ---
Pt tolerated procedure well. VSS upon transfer to post procedure room to KWABENA Mcnamara. All sedaiton meds given by Alexandra Back. All other documented meds adminsitered by Dr Ayala.
== END 2019-09-05 14:44 | disposition home or self-care (01) ==
PROVIDERS: PCP Internal Medicine; Referring Provider Physical Medicine & Rehabilitation; Visit Provider Physical Medicine & Rehabilitation
DX: M53.3 Sacrococcygeal disorders, not elsewhere classified (principal); M47.898 Other spondylosis, sacral and sacrococcygeal region
CPT/HCPCS: 27096; 99152; J0702; J2250; J3010

== ENCOUNTER → 2020-05-21 09:54 | Outpatient (CLI) | payer MEDICARE, SELFPAY ==
--- NOTE | 2020-05-21 | DI.ECHO.S_ITS ---
[facility] [place] [facility]---------+ [facility] +---------+ : : [address] : : : : [place] : : : : [id number] : : : : Phone: [phone] +---------+ Echocardiogram Report + + :Name: KENDALL FRIED Study Date: 05/21/2020 Height: 66 in : :[facility] ReadingLocation: Weight: 224 lb : : Gender: Male BSA: 2.1 m2 : :: 1935 Age: 84 yrs BP: 158/62 mmHg: :Reason For Study: Cardiomyopathy, Dilated : :Ordering Physician: Anders : :Isreal Dalal Performed By: Med Capps : :Referring: ANDERS DALAL : + + Interpretation Summary 1) Mildly enlarged left ventricle with normal systolic function (EF 60-65%). 2) Normal right ventricular size and function. 3) There is moderate aortic regurgitation. 4) The ascending aorta is moderately to severely enlarged at 4.8cm. 5) Hypertension during the study (BP 158/62mmHg). 6) Compared to the Echo done 03/12/2019, aorta enlargement has increased from 4.7cm to 4.8cm on this study. Procedure: A two-dimensional transthoracic echocardiogram with color flow and Doppler was performed. The study quality was technically adequate. Comparison is made with the echocardiogram of 03/12/2019. The patient was in sinus rhythm with heart rates between 53-63 bpm during the exam. Left Ventricle: The left ventricle is mildly dilated. There is mild concentric left ventricular hypertrophy. Left ventricular systolic function is normal. The ejection fraction is estimated to be 60-65%. There are no focal wall motion abnormalities. Diastolic parameters suggest a relaxation abnormality of the left ventricle, consistent with probable normal filling pressures. Right Ventricle: The right ventricle is normal in size and function. Atria: Both atria are moderately dilated. The right atrium is mildly dilated. There is no Doppler evidence for an interatrial shunt. Mitral Valve: The mitral valve leaflets are mildly calcified. There is no mitral regurgitation noted. Aortic Valve: The aortic valve is normal in structure and function. There is no aortic valve stenosis. There is moderate aortic regurgitation. Tricuspid Valve: The tricuspid valve is normal in structure and function. There is mild tricuspid regurgitation. The right ventricular systolic pressure is estimated to be at least 39 mmHg based on an estimated right atrial pressure of 3 mm Hg. Pulmonic Valve: The pulmonic valve is not well seen, but is grossly normal. There is mild pulmonic regurgitation. Great Vessels: The aortic root is moderately dilated. The ascending aorta is moderate-severely enlarged. The IVC is of normal diameter and collapses greater than 50% with a sniff. This suggests a low right atrial pressure of 3 mm Hg. Pericardium/ Pleura There is no pericardial effusion. There is no pleural effusion. MMode/2D Measurements & Calculations LVIDd: 6.2 cm LVOT diam: 2.3 cm LVIDs: 4.0 cm Ao root diam: 4.6 cm FS: 35.5 % asc Aorta Diam: 4.8 cm IVSd: 1.3 cm LVPWd: 1.3 cm LV baker. diameter/BSA (cm/m^2): 3.0 LV sys. diameter/BSA (cm/m^2): 1.9 LA A2 area: 25.7 cm2 RA area: 22.4 cm2 LA A4 area: 28.5 cm2 LA length (vol): 6.3 cm LA vol: 97.9 ml LA vol index: 46.7 ml/m2 RVD1 (basal): 3.3 cm TAPSE: 2.4 cm Doppler Measurements & Calculations Ao V2 max: 220.2 cm/sec LVOT Max Jacobo: 172.3 cm/sec Ao V2 mean: 138.9 cm/sec LV V1 max P.9 mmHg Ao max P.4 mmHg LV V1 VTI: 39.7 cm Ao mean P.9 mmHg GENESIS(I,D): 3.2 cm2 Ao V2 VTI: 51.6 cm GENESIS(V,D): 3.3 cm2 sev ratio: 0.77 GENESIS indexed to BSA (cm^2/m^2): 1.5 AI P1/2t: 408.9 msec AI dec slope: 294.4 cm/sec2 MV E max jacobo: 32.7 cm/sec TR max jacobo: 298.5 cm/sec MV A max jacobo: 80.6 cm/sec TR max P.6 mmHg MV E/A: 0.41 PA V2 max: 122.9 cm/sec Med Peak E' Jacobo: 4.0 cm/sec PA V2 mean: 78.5 cm/sec E/E' med: 8.2 PA mean P.8 mmHg Lat Peak E' Jacobo: 4.2 cm/sec PA pr(Accel): 41.6 mmHg E/E' lat: 7.8 E/e' average: 8.0 MV dec time: 0.28 sec SV(LVOT): 167.1 ml Reading Physician:09:49 AM
== END ==
PROVIDERS: PCP Internal Medicine; Referring Provider Internal Medicine Cardiovascular Disease; Visit Provider Internal Medicine Cardiovascular Disease
DX: I08.2 Rheumatic disorders of both aortic and tricuspid valves (principal); I77.810 Thoracic aortic ectasia; I42.0 Dilated cardiomyopathy
CPT/HCPCS: 93306

== ENCOUNTER → 2020-12-08 13:17 | Outpatient (CLI) | payer MEDICARE, SELFPAY ==
--- NOTE | 2020-12-08 13:19 | DI.RAD.S_ITS ---
PROCEDURE: XR LUMBAR SPINE MIN 4V INDICATIONS: lumbar stenosis TECHNIQUE: 5 views of the lumbar spine were acquired, including bilateral oblique views. COMPARISON: [facility], CR, XR LUMBAR SPINE MIN 4V, 07/25/2019, 8:23. FINDINGS: Bones: No definite acute fracture although exam sensitivity limited by scoliosis and discogenic changes. Severe dextroscoliosis as before. Posterior spinal fixation with paraspinal demi and pedicle screws at L5-S1. Unchanged alignment. The hardware appears intact. Interbody cage graft also noted. Severe diffuse narrowing of the lumbar disc spaces as before. No definite interval change. Moderate to severe bilateral hip joint degeneration. Soft tissues: Overlying bowel gas pattern is normal. No suspicious soft tissue calcifications. Oblique images: No pars defects. IMPRESSION: Redemonstrated severe multilevel lumbar spondylosis and facet disease. Postsurgical changes and dextroscoliosis, also similar appearance since the prior study. Dictated by: Chris Brooks M.D. on 12/08/2020 at 14:57 Approved by: Chris Brooks M.D. on 12/08/2020 at 14:59
== END ==
PROVIDERS: PCP Internal Medicine; Referring Provider Physical Medicine & Rehabilitation; Visit Provider Physical Medicine & Rehabilitation
DX: M47.26 Other spondylosis with radiculopathy, lumbar region (principal); M41.86 Other forms of scoliosis, lumbar region; Z98.1 Arthrodesis status; M16.0 Bilateral primary osteoarthritis of hip
CPT/HCPCS: 72110

== ENCOUNTER → 2021-03-29 11:30 | Outpatient (CLI) | payer MEDICARE, SELFPAY ==
[2021-03-29 12:37] LABS: COVID19 -Nasal RAPID Negative (Negative)
== END ==
PROVIDERS: PCP Internal Medicine; Visit Provider Physical Medicine & Rehabilitation
DX: Z20.822 Contact with and (suspected) exposure to COVID-19 (principal)
CPT/HCPCS: 87635; C9803

== ENCOUNTER 2021-03-30 11:34 | Outpatient (CLI) | payer MEDICARE, SELFPAY ==
[2021-03-30] VITALS (10 sets, daily range): BP systolic 108–216; BP diastolic 62–91; PULSE 57–67; RESP 14–20; O2SAT 95–98
--- NOTE | 2021-03-30 11:36 | DI.RAD.S_ITS ---
PROCEDURE: PAIN L/S FACET INJ/BLK 1ST COLTEN COMPARISON: [facility], RG, MRI L-SPINE W/O CONTRAST, 03/04/2021, 12:30. [facility], XA, PAIN L/S FACET INJ/BLK 1ST COLTEN, 07/19/2018, 9:51. INDICATIONS: SPONDYLOSIS FINDINGS: Fluoroscopic spot filming was performed to verify placement of spinal needles on both sides at the L3, L4, and L5 levels, as labeled on the films. Appropriate location of the needle tips was confirmed by injection of iodinated contrast. IMPRESSION: Intraprocedural examination within normal limits. Dictated by: Yusef Longo M.D. on 03/30/2021 at 13:11 Approved by: Yusef Longo M.D. on 03/30/2021 at 13:12
[2021-03-30] MEDS: fentaNYL 250 MCG/5 ML INJ 50 MCG IV (13:20)
[2021-03-30] MEDS: IOPAMIDOL 15 ML VIAL 3 ML INJ (13:24)
[2021-03-30] MEDS: BUPIVACAINE 0.5% (PF) VIAL 5 ML INJ (13:24)
[2021-03-30] MEDS: MIDAZOLAM 5 MG/5 ML VIAL IV (13:25)
[2021-03-30] MEDS: LIDOCAINE 1% 20 ML (13:25)
--- NOTE | 2021-03-30 13:41 | P.PCN_ITS ---
Date/Time/Diagnoses Date of procedure: 03/30/21 Time of procedure: 13:41 Pre-procedure diagnosis: 1. FACET ARTHROPATHY Post-procedure diagnosis: same Procedure Notes Procedure: 1. BILATERAL L3, L4 AND L5 DIAGNOSTIC MB BLOCKS Indications: Delmer is referred by Dr. White for treatment of Bilateral Axial LBP. Physician: Delmer Ayala Total Fluoroscopy time (seconds): 15 Total sedation minutes: 14 Complications: none Procedure in detail & Post-procedure care: DESCRIPTION OF PROCEDURE Fluoroscopically guided, contrast-controlled bilateral L3, L4 AND L5 medial branch blocks with 0.5cc of 0.5% Marcaine. Following review of allergy and review of potential side effects and complications, including, but not necessarily limited to, infection, allergic reaction, local tissue breakdown, nerve injury, paralysis, stroke and possible , the patient indicated that the patient understood and agreed to proceed. An informed consent document was signed by the patient, witnessed by a nurse, and placed in the patient's chart. After review of previous anaesthesic history and IV conscious sedation the patient was deemed safe to proceed with today's procedure with IV conscious sedation as ASA class II designation. Safety time-out was performed to confirm patient ID, procedure to be performed and site of procedure. IV sedation was accomplished with a combination of 3mg of Versed and 50mcg of Fentantyl was administered by the RN after DO order, titrated to patient comfort during the course of the procedure while the patient remained responsive to all verbal commands In the prone position, following sterile prep and drape of the lumbar region, the right L3, L4 AND L5 anatomical location of the medial branch of the dorsal ramus was identified fluoroscopically. Subsequently an anesthetic skin wheal using 1% lidocaine solution was initiated at each of the anatomical spots. Subsequently then a 22-gauge 3.5-inch spinal needle was atraumatically introduced and advanced under fluoroscopic guidance at each of the corresponding sites at the right L3, L4 and L5 MB. After negative aspiration, 0.2cc of Isovue 200 was injected, confirming placement without vascular or intrathecal uptake. Subsequently then 0.5cc of 0.5% Marcaine solution was injected at each of the corresponding sites at the right L3, L4 and L5 medial branch locations. The identical procedure was replicated on the left. The patient tolerated the procedure well without signs or symptoms of complications. The patient tolerated the procedure well without signs or symptoms of complications prior to transfer to the recovery area continued monitoring without incident. Post-procedure, the patient was monitored initiating provocative activities to measure the amount of relief from block of the facetogenic pain. The patient reported a VAS of 7 prior to the procedure and a post-procedure VAS of 1. It has been a pleasure to assist in the diagnostic and therapeutic care of your patient. POST OP INSTRUCTIONS The patient was provided with a Pain Log to complete over the next several hours and subsequent days prior to the patient's follow up with the ordering physician. If the patient has inspector machined parts relief to the solution applied, then they may be a candidate for medial branch rhizotomy. The patient is aware, was provided, once again, with a Pain Log and will follow up with the referring physician for review and clinical correlation
== END 2021-03-30 14:05 | disposition home or self-care (01) ==
PROVIDERS: PCP Internal Medicine; Referring Provider Physical Medicine & Rehabilitation; Visit Provider Physical Medicine & Rehabilitation
DX: M47.816 Spondylosis without myelopathy or radiculopathy, lumbar region (principal)
CPT/HCPCS: 64493; 64494; 99152; J2250; J3010

== ENCOUNTER → 2021-06-09 | Outpatient (CLI) | payer MEDICARE, SELFPAY ==
--- NOTE | 2021-06-09 | DI.ECHO.S_ITS ---
[facility] +---------+ : : [address] : [place] : : : : [id number] : : : : Phone: [phone]+ Echocardiogram Report + + :Name: KENDALL FRIED Study Date: 06/09/2021 Height: 66 in : :[facility] ReadingLocation: Weight: 235 lb : : Gender: Male BSA: 2.1 m2 : :: 1935 Age: 86 yrs BP: 170/72 mmHg: :Reason For Study: OTHER SPECIFIED DISORDERS OF ARTERIES AND : :ARTERIOLS : :Ordering Physician: TABBY, : :ANDERS Performed By: Carmen Sal : :Referring: ANDERS DALAL : + + Interpretation Summary 1) Mildly enlarged left ventricle with low normal systolic function (EF 50- 55%). 2) Normal right ventricular size and function. 3) There is mild-moderate aortic regurgitation. 4) The ascending aorta is moderately to severely enlarged at 4.8cm. 5) Hypertension during the study (BP 170/72mmHg). 6) Compared to the Echo done 05/21/2021, LVEF has decreased from 60-65% to 50- 55% on this stucdy. Procedure: A two-dimensional transthoracic echocardiogram with color flow and Doppler was performed. The study quality was technically adequate. Comparison is made with the echocardiogram of 05/21/2020. The heart rate ranged between 55-70 bpm during the study. Left Ventricle: The left ventricle is mildly dilated. There is mild concentric left ventricular hypertrophy. The ejection fraction is estimated to be 50-55%. There is a mild dyssynchronous contraction pattern, consistent with a conduction abnormality. Right Ventricle: The right ventricle is normal in size and function. Atria: The left atrium is moderately dilated. Right atrial size is normal. There is no Doppler evidence for an interatrial shunt. Mitral Valve: The mitral valve leaflets are mildly calcified. There is trace mitral regurgitation. Aortic Valve: The aortic valve is trileaflet. The aortic valve opens well. There is no aortic valve stenosis. There is mild to moderate aortic regurgitation. Tricuspid Valve: The tricuspid valve is normal in structure and function. There is mild tricuspid regurgitation. The right ventricular systolic pressure is estimated to be at least 27 mmHg based on an estimated right atrial pressure of 3 mm Hg. Pulmonic Valve: The pulmonic valve is not well visualized. There is mild pulmonic regurgitation. Great Vessels: The aortic root is moderately dilated. The ascending aorta is moderate-severely enlarged. The IVC is of normal diameter and collapses greater than 50% with a sniff. This suggests a low right atrial pressure of 3 mm Hg. Pericardium/ Pleura There is no pericardial effusion. There is no pleural effusion. MMode/2D Measurements & Calculations LVIDd: 6.6 cm LVOT diam: 2.4 cm LVIDs: 4.7 cm Ao root diam: 4.8 cm FS: 28.9 % asc Aorta Diam: 4.9 cm IVSd: 1.1 cm Ao Arch Diam (Prox Trans): 3.7 cm LVPWd: 1.2 cm LV baker. diameter/BSA (cm/m^2): 3.1 LV sys. diameter/BSA (cm/m^2): 2.2 LA A2 area: 29.0 cm2 RA long axis: 6.2 cm LA A4 area: 22.6 cm2 RA area: 20.6 cm2 LA length (vol): 6.8 cm RA vol: 58.4 ml LA vol: 81.4 ml RA : 27.2 ml/m2 LA vol index: 38.0 ml/m2 IVC diam: 1.3 cm RVD1 (basal): 3.7 cm RVD2 (mid): 3.6 cm TAPSE: 2.4 cm Doppler Measurements & Calculations Ao V2 max: 159.5 cm/sec LVOT Max Jacobo: 132.4 cm/sec Ao V2 mean: 102.8 cm/sec LV V1 max P.0 mmHg Ao max P.2 mmHg LV V1 VTI: 31.0 cm Ao mean P.0 mmHg GENESIS(I,D): 4.2 cm2 Ao V2 VTI: 33.5 cm GENESIS(V,D): 3.7 cm2 sev ratio: 0.93 GENESIS indexed to BSA (cm^2/m^2): 2.0 AI P1/2t: 469.9 msec AI dec slope: 231.0 cm/sec2 MV E max jacobo: 36.6 cm/sec TR max jacobo: 243.1 cm/sec MV A max jacobo: 79.5 cm/sec TR max P.6 mmHg MV E/A: 0.46 PA V2 max: 106.5 cm/sec Lat Peak E' Jacobo: 3.4 cm/sec PA V2 mean: 67.5 cm/sec E/E' lat: 10.6 PA mean P.2 mmHg MV dec time: 0.10 sec PA pr(Accel): 19.1 mmHg SV(LVOT): 139.8 ml Reading Physician:01:07 PM
== END ==
PROVIDERS: PCP Internal Medicine; Referring Provider Internal Medicine Cardiovascular Disease; Visit Provider Internal Medicine Cardiovascular Disease
DX: I77.89 Other specified disorders of arteries and arterioles (principal); I08.2 Rheumatic disorders of both aortic and tricuspid valves; I77.810 Thoracic aortic ectasia
CPT/HCPCS: 93306

== ENCOUNTER → 2021-06-28 09:38 | Outpatient (CLI) | payer MEDICARE, SELFPAY ==
[2021-06-28 13:33] LABS: COVID19 -Nasal RAPID Negative (Negative)
== END ==
PROVIDERS: PCP Internal Medicine; Visit Provider Physical Medicine & Rehabilitation
DX: Z20.822 Contact with and (suspected) exposure to COVID-19 (principal)
CPT/HCPCS: 87635; C9803

== ENCOUNTER 2021-06-29 10:03 | Outpatient (CLI) | payer MEDICARE, SELFPAY ==
[2021-06-29] VITALS (12 sets, daily range): BP systolic 147–187; BP diastolic 47–79; PULSE 57–62; RESP 15–22; TEMP 36.2; O2SAT 94–98
--- NOTE | 2021-06-29 10:06 | DI.RAD.S_ITS ---
PROCEDURE: PAIN L/S MED/LAT N RFA BILAT INDICATIONS: SPONDYLOSIS COMPARISON: None. FINDINGS: Fluoroscopic spot filming was performed to verify placement of spinal needles at the right side of L3-4 and L4-5 levels level(s), as labeled on the films. Appropriate location(s) of the needle tip(s) was confirmed by injection of iodinated contrast. IMPRESSION: Fluoro guidance was provided for bilateral L3, L4 and L5 medial branch rhizotomy performed by the ordering clinician. Dictated by: Andrew Julian M.D. on 06/29/2021 at 12:58 Approved by: Andrew Julian M.D. on 06/29/2021 at 13:00
[2021-06-29] MEDS: MIDAZOLAM 2 MG/2 ML VIAL IV (11:25)
[2021-06-29] MEDS: LIDOCAINE 1% 20 ML (11:30)
[2021-06-29] MEDS: BUPIVACAINE 0.5% (PF) VIAL 5 ML INJ (11:30)
[2021-06-29] MEDS: MIDAZOLAM 2 MG/2 ML VIAL ×2 (11:31→11:47)
--- NOTE | 2021-06-29 12:07 | P.PCN_ITS ---
Date/Time/Diagnoses Date of procedure: 06/29/21 Time of procedure: 12:08 Pre-procedure diagnosis: 1. RECALCITRANT FACET ARTHROPATHY Post-procedure diagnosis: same Procedure Notes Procedure: 1. BILATERAL L3, L4 AND L5 MEDIAL BRANCH RADIOFREQUENCY NEUROTOMY Indications: Hunter is referred by Dr. White for treatment of facet arthropathy. Physician: Delmer Ayala Total Fluoroscopy time (seconds): 22 Total sedation minutes: 37 Complications: none Procedure in detail & Post-procedure care: DESCRIPTION OF PROCEDURE Bilateral L3, L4 and L5 medial branch radiofrequency neurotomy The patient is well known to this clinic having undergone previous facet injections with good but temporary relief. The patient has experienced appropriate, concordant relief with previous facet and median branch blocks but the patient's pain has been recalcitrant to further conservative measures. Therefore, based upon the patient's relief and persistent symptoms, the patient is considered an appropriate candidate for facet rhizotomy. All of the patient's questions regarding the risks versus benefits of the procedure, including, but not limited to, bleeding, infection, temporary as well as lasting nerve injury, paralysis, stroke, and , as well treatment alternatives were answered to satisfaction. After obtaining informed consent, denial of pertinent drug allergies, as well as being made aware of the potential risks of bleeding, infection, spinal cord trauma, paralysis, temporary and permanent nerve damage, seizure, stroke, and possible , the patient was brought to the fluoroscopy suite and positioned prone on the fluoroscopy table. The lumbar region was prepped with Betadine and covered with a fenestrated drape in the usual sterile fashion. Appropriate monitors applied including pulse oximeter, pulse, and blood pressure for regular monitoring throughout the procedure. After review of previous anaesthesic history and IV conscious sedation the patient was deemed safe to proceed with today's procedure with IV conscious sedation as ASA class II designation. Safety time-out was performed to confirm patient ID, procedure to be performed and site of procedure. IV sedation was accomplished with a combination of 4mg of Versed administered by the RN after DO order, titrated to patient comfort during the course of the procedure while the patient remained responsive to all verbal commands. After local infiltration using 1% lidocaine, under fluoroscopic guidance, a 10- cm RF insulated needle with a 10-mm active tip was positioned parallel to the junction of the right the superior articulating process where the L5 medial branch resides. Needle placement was confirmed with motor stimulation of .5v on the right which produced local stimulation without radicular component. The stimulation was then increased to 2v with, once again, only local multifidus stimulation without radicular component. The needle was then removed and the identical procedure was performed along the length of the right L4 medial branch with motor stimulation at .7v on the right. The identical procedure was once again performed along the length of the right L3 and medial branch with motor stimulation of .5v on the right. The medial branches were then anesthetised with 0.5% marcaine. This was then followed by two discreet lesions performed at 80 degrees Celsius for 90 seconds each. The identical procedures were repeated on the left. The patient tolerated the procedure well without signs or symptoms of complications prior to transfer to the recovery area continued monitoring without incident. The patient was then transferred to the recovery area where they were observed for an appropriate period of time after the injection. The patient reported a VAS score of 8 prior to the procedure and a post-procedure VAS of 14. POST OP INSTRUCTIONS The patient was provided a Pain Log to continue to record the patient's response to the target-specific procedure prior to the patient's follow-up visit with the referring physician. Additionally, specific post-injection care instructions and a contact number to our office were provided if concerns arise regarding possible complications associated with the procedure are suspected.
== END 2021-06-29 12:29 | disposition home or self-care (01) ==
PROVIDERS: PCP Internal Medicine; Referring Provider Physical Medicine & Rehabilitation; Visit Provider Physical Medicine & Rehabilitation
DX: M47.817 Spondylosis without myelopathy or radiculopathy, lumbosacral region (principal); M47.816 Spondylosis without myelopathy or radiculopathy, lumbar region
CPT/HCPCS: 64635; 64636; 99152; 99153; J2250

== ENCOUNTER → 2022-06-02 11:22 | Outpatient (CLI) | payer MEDICARE, SELFPAY ==
--- NOTE | 2022-06-02 | DI.ECHO.S_ITS ---
[facility]---------+ [facility] +---------+ : : [address] : [place] : : : : [id number] : : : : Phone: [phone]+ Echocardiogram Report + + :Name: KENDALL FRIED Study Date: 06/02/2022 Height: 66.5 in: :[facility] ReadingLocation: Weight: 223 lb : : Gender: Male BSA: 2.1 m2 : :: 1935 Age: 86 yrs BP: 160/53 mmHg: :Reason For Study: ASCENDING AORTA ENLARGEMENT : :Ordering Physician: TABBY, : :ANDERS Performed By: Carmen Sal : :Referring: ANDERS DALAL : + + Interpretation Summary 1) Mildly to moderately enlarged left ventricle with low normal systolic function (EF 50-55%). 2) Upper normal right ventricular size with normal function. 3) There is mild-moderate aortic regurgitation. 4) The ascending aorta is moderately to severely enlarged at 4.9cm. 5) Compared to the Echo done 06/09/2021, no significant change. Procedure: A two-dimensional transthoracic echocardiogram with color flow and Doppler was performed. The study quality was technically adequate. Comparison is made with the echocardiogram of 06/09/2021. The heart rate ranged between 57-67 bpm during the study. Left Ventricle: The left ventricle is mild-moderately dilated. There is mild concentric left ventricular hypertrophy. The estimated left ventricular end diastolic volume is 180 ml. Left ventricular ejection fraction is estimated to be 50 +/- 5%. Septal motion is consistent with conduction abnormality. Right Ventricle: The right ventricle is at the upper limits of normal in size. The right ventricular systolic function is normal. Atria: The left atrium is severely dilated. The right atrium is mildly dilated. There is no Doppler evidence for an interatrial shunt. Mitral Valve: There is mild mitral annular calcification. The mitral valve leaflets are mildly calcified. There is mild mitral regurgitation. Aortic Valve: The aortic valve is trileaflet. The aortic valve is mildly calcified. There is mild aortic valve sclerosis. There is no aortic valve stenosis. There is mild to moderate aortic regurgitation. Tricuspid Valve: The tricuspid valve is normal in structure and function. There is mild tricuspid regurgitation. The right ventricular systolic pressure is estimated to be at least 23 mmHg based on an estimated right atrial pressure of 3 mm Hg. Pulmonic Valve: The pulmonic valve is not well visualized. There is trace pulmonic regurgitation. Great Vessels: The aortic root is moderately dilated. The ascending aorta is moderate-severely enlarged. The IVC is of normal diameter and collapses greater than 50% with a sniff. This suggests a low right atrial pressure of 3 mm Hg. Pericardium/ Pleura There is no pericardial effusion. There is no pleural effusion. MMode/2D Measurements & Calculations LVIDd: 6.7 cm LVOT diam: 2.5 cm LVIDs: 5.1 cm Ao root diam: 4.8 cm FS: 23.5 % asc Aorta Diam: 4.9 cm IVSd: 1.2 cm Ao Arch Diam (Prox Trans): 4.0 cm LVPWd: 1.1 cm LV baker. diameter/BSA (cm/m^2): 3.2 LV sys. diameter/BSA (cm/m^2): 2.4 LA A2 area: 34.8 cm2 RA long axis: 6.7 cm LA A4 area: 24.9 cm2 RA area: 24.7 cm2 LA length (vol): 6.6 cm RA vol: 77.5 ml LA vol: 111.1 ml RA : 36.8 ml/m2 LA vol index: 52.7 ml/m2 IVC diam: 1.9 cm RVD1 (basal): 4.1 cm RVD2 (mid): 3.6 cm TAPSE: 2.0 cm Doppler Measurements & Calculations Ao V2 max: 182.4 cm/sec LVOT Max Jacobo: 118.4 cm/sec Ao V2 mean: 125.3 cm/sec LV V1 max P.6 mmHg Ao max P.3 mmHg LV V1 VTI: 28.2 cm Ao mean P.2 mmHg GENESIS(I,D): 3.3 cm2 Ao V2 VTI: 41.1 cm GENESIS(V,D): 3.1 cm2 sev ratio: 0.69 GENESIS indexed to BSA (cm^2/m^2): 1.6 AI P1/2t: 364.8 msec AI dec slope: 297.5 cm/sec2 MV E max jacobo: 85.5 cm/sec TR max jacobo: 220.6 cm/sec MV A max jacobo: 2.2 cm/sec TR max P.5 mmHg MV E/A: 38.8 PA V2 max: 98.7 cm/sec Med Peak E' Jacobo: 5.5 cm/sec PA V2 mean: 69.8 cm/sec E/E' med: 15.5 PA mean P.2 mmHg Lat Peak E' Jacobo: 4.8 cm/sec PA pr(Accel): 49.9 mmHg E/E' lat: 18.0 E/e' average: 16.7 MV dec time: 0.14 sec SV(LVOT): 134.6 ml Reading Physician:06:50 PM
== END ==
PROVIDERS: PCP Internal Medicine; Referring Provider Internal Medicine Cardiovascular Disease; Visit Provider Internal Medicine Cardiovascular Disease
DX: I77.89 Other specified disorders of arteries and arterioles (principal); I08.3 Combined rheumatic disorders of mitral, aortic and tricuspid valves
CPT/HCPCS: 93306

== ENCOUNTER → 2023-06-05 11:18 | Outpatient (CLI) | payer MEDICARE, SELFPAY ==
--- NOTE | 2023-06-05 11:19 | DI.ECHO.S_ITS ---
[facility] +---------+ [facility] : : [address] : [place] : : [id number] : : Phone: [phone] Echocardiogram Report + + :Name: KENDALL FRIED Study Date: 06/05/2023 Height: 66 in : :Hospital ReadingLocation: Weight: 240 lb : : Gender: Male BSA: 2.2 m2 : :: 1935 Age: 88 yrs BP: 170/65 mmHg: :Reason For Study: CHEST PAIN : :Ordering Physician: : :ANDERS DALAL Performed By: Carmen Sal : :Referring: ANDERS DALAL : + + Interpretation Summary 1) Mildly enlarged left ventricle with low normal systolic function (EF 50- 55%). 2) Normal right ventricular size and function. 3) There is mild-moderate aortic regurgitation. 4) The ascending aorta is moderately to severely enlarged at 4.9cm. 5) Compared to the Echo done 06/02/2022, no significant change. Procedure: A two-dimensional transthoracic echocardiogram with color flow and Doppler was performed. The study quality was technically adequate. Comparison is made with the echocardiogram of 06/02/2022. The heart rate ranged between 58-66 bpm during the study. Left Ventricle: The left ventricle is mildly dilated. There is mild concentric left ventricular hypertrophy. The ejection fraction is estimated to be 50-55%. There are no focal wall motion abnormalities. Diastolic parameters suggest a pseudonormalization pattern, consistent with probable elevated filling pressures. Right Ventricle: The right ventricle is normal in size and function. Atria: The left atrium is severely dilated. Right atrial size is normal. There is no Doppler evidence for an interatrial shunt. Mitral Valve: The mitral valve leaflets are mildly calcified. There is mild mitral annular calcification. There is trace mitral regurgitation. Aortic Valve: There is mild aortic valve sclerosis. The aortic valve is slightly calcified. The peak aortic velocity is 2.1 m/sec. The aortic valve mean gradient is 10 mmHg. There is mild to moderate aortic regurgitation. Tricuspid Valve: The tricuspid valve is normal in structure and function. There is trace tricuspid regurgitation. Pulmonic Valve: The pulmonic valve leaflets are thin and pliable; valve motion is normal. There is a trace or physiologic amount of pulmonic regurgitation. Great Vessels: The aortic root is moderately dilated. The ascending aorta is moderate-severely enlarged. The IVC is of normal diameter and collapses greater than 50% with a sniff. This suggests a low right atrial pressure of 3 mm Hg. Pericardium/ Pleura There is no pericardial effusion. There is no pleural effusion. MMode/2D Measurements & Calculations LVIDd: 6.2 cm LVOT diam: 2.5 cm LVIDs: 5.2 cm Ao root diam: 4.7 cm FS: 16.3 % asc Aorta Diam: 4.9 cm LVPWd: 1.3 cm Ao Arch Diam (Prox Trans): 4.1 cm LV baker. diameter/BSA (cm/m^2): 2.9 LV sys. diameter/BSA (cm/m^2): 2.4 LA A2 area: 33.8 cm2 RA long axis: 5.7 cm LA A4 area: 26.4 cm2 RA area: 21.0 cm2 LA length (vol): 6.7 cm RA vol: 65.8 ml LA vol: 113.9 ml RA : 30.5 ml/m2 LA vol index: 52.7 ml/m2 IVC diam: 1.3 cm RVD1 (basal): 3.7 cm TAPSE: 2.0 cm Doppler Measurements & Calculations Ao V2 max: 218.2 cm/sec LVOT Max Jacobo: 103.7 cm/sec Ao V2 mean: 149.6 cm/sec LV V1 max P.3 mmHg Ao max P.1 mmHg LV V1 VTI: 22.8 cm Ao mean P.3 mmHg GENESIS(I,D): 2.2 cm2 Ao V2 VTI: 50.0 cm GENESIS(V,D): 2.2 cm2 sev ratio: 0.46 GENESIS indexed to BSA (cm^2/m^2): 1.00 AI P1/2t: 477.3 msec AI dec slope: 236.9 cm/sec2 MV E max jacobo: 56.1 cm/sec TR max jacobo: 245.1 cm/sec MV A max jacobo: 93.0 cm/sec TR max P.0 mmHg MV E/A: 0.60 PA V2 max: 105.3 cm/sec Med Peak E' Jacobo: 3.4 cm/sec PA V2 mean: 74.2 cm/sec E/E' med: 16.5 PA mean P.4 mmHg Lat Peak E' Jacobo: 5.1 cm/sec PA pr(Accel): 37.9 mmHg E/E' lat: 11.0 E/e' average: 13.8 MV dec time: 0.25 sec SV(LVOT): 108.0 ml Reading Physician:04:18 PM
== END ==
LOC: ECHO 11:18
PROVIDERS: PCP Internal Medicine; Referring Provider Internal Medicine Cardiovascular Disease; Visit Provider Internal Medicine Cardiovascular Disease
DX: I34.81 Nonrheumatic mitral (valve) annulus calcification (principal); I35.1 Nonrheumatic aortic (valve) insufficiency; I77.89 Other specified disorders of arteries and arterioles; I77.810 Thoracic aortic ectasia
CPT/HCPCS: 93306

== ENCOUNTER → 2023-07-05 11:41 | Outpatient (CLI) | payer MEDICARE, SELFPAY ==
--- NOTE | 2023-07-05 11:43 | DI.RAD.S_ITS ---
PROCEDURE: XR LUMBAR SPINE MIN 4V INDICATIONS: BACK PAIN TECHNIQUE: 5 views of the lumbar spine were acquired, including bilateral oblique views. COMPARISON: [facility], , XR LUMBAR SPINE MIN 4V, 12/08/2020, 13:14. FINDINGS: Bones: Convex right thoracolumbar scoliosis. Disc space narrowing hypertrophic facet joints present throughout the exam particularly lower lumbar spine. L5-S1 discectomy and fusion with posterior demi and screw instrumentation in good position. Generalized decreased osseous mineralization noted. Soft tissues: Atherosclerotic calcification in the abdominal aorta noted without evidence of aneurysm. Oblique images: No pars defects. IMPRESSION: Degenerative disc disease, arthropathy and thoracolumbar dextroscoliosis. Instrumented L5-S1 discectomy and fusion. Osteopenia and atherosclerosis Approved by: Martell Lai M.D. on 07/05/2023 at 11:57
== END ==
PROVIDERS: PCP Internal Medicine; Referring Provider Physical Medicine & Rehabilitation; Visit Provider Physical Medicine & Rehabilitation
DX: M47.27 Other spondylosis with radiculopathy, lumbosacral region (principal); M47.26 Other spondylosis with radiculopathy, lumbar region; M51.16 Intervertebral disc disorders with radiculopathy, lumbar region; M48.061 Spinal stenosis, lumbar region without neurogenic claudication; M41.9 Scoliosis, unspecified; I70.0 Atherosclerosis of aorta; M85.80 Other specified disorders of bone density and structure, unspecified site; Z98.1 Arthrodesis status
CPT/HCPCS: 72110

== ENCOUNTER 2023-07-27 11:56 | Outpatient (CLI) | payer MEDICARE, SELFPAY ==
[2023-07-27] VITALS (9 sets, daily range): BP systolic 161–186; BP diastolic 65–76; PULSE 60–63; RESP 13–21; TEMP 36.1; O2SAT 94–99
--- NOTE | 2023-07-27 13:00 | DI.RAD.S_ITS ---
PROCEDURE: PAIN L INTERLAMINAR/CAUDAL INJ INDICATIONS: L4/5 TL MAURA COMPARISON: [facility], , PAIN L INTERLAMINAR/CAUDAL INJ, 08/22/2017, 14:14. FINDINGS: Fluoroscopic spot filming was performed to verify placement of spinal needles at the L4-L5 level(s), as labeled on the films. Appropriate location(s) of the needle tip(s) was confirmed by injection of iodinated contrast. IMPRESSION: Imaging utilized for epidural steroid injection by the referring interventional pain physician Dictated by: Yosvany Almaguer M.D. on 07/27/2023 at 16:15 Approved by: Yosvany Almaguer M.D. on 07/27/2023 at 16:16
[2023-07-27] MEDS: MIDAZOLAM 2 MG/2 ML VIAL IV (13:44)
[2023-07-27] MEDS: iopamidoL 15 ML VIAL 3 ML INJ (13:47)
[2023-07-27] MEDS: BUPIVACAINE 0.25% (PF) VIAL 2 ML INJ (13:47)
[2023-07-27] MEDS: DEXAMETHASONE 10 MG/ML VIAL INJ (13:48)
[2023-07-27] MEDS: BETAMETHASONE 30 MG/5 ML MDV 6 MG INJ (13:48)
--- NOTE | 2023-07-27 13:55 | P.PCN_ITS ---
Date/Time/Diagnoses Date of procedure: 07/27/23 Time of procedure: 13:55 Pre-procedure diagnosis: 1. HNP WITH RADICULAR FEATURES, 2. MULTILEVEL CENTRAL STENOSIS, Post-procedure diagnosis: same Procedure Notes Procedure: 1. FLUOROSCOPICALLY GUIDED CONTRAST CONTROLLED INTERLAMINAR EPIDURAL STEROID INJECTION -L4/5 Indications: Delmer is referred by Dr. White for treatment of Bilateral Foraminal Stenosis R>L LE symptoms. Physician: Delmer Ayala Total Fluoroscopy time (seconds): 7 Total sedation minutes: 5 Complications: none Procedure in detail & Post-procedure care: FINDINGS Multilevel Central Spinal Stenosis with Nerve Root Compression DESCRIPTION OF PROCEDURE Fluoroscopically guided, contrast-controlled L4/5 translaminar epidural steroid injection. Following review of allergy and review of potential side effects and complications, including, but not necessarily limited to, infection, allergic reaction, local tissue breakdown, temporary as well as permanent nerve injury, paralysis, stroke and possible , the patient indicated that the patient understood and agreed to proceed. An informed consent document was signed by the patient, witnessed by a nurse, and placed in the patient's chart. Additionally, other treatment options including modalities, medications, and physical therapy were reviewed with the patient. After review of previous anaesthesic history and IV conscious sedation the patient was deemed safe to proceed with today?s procedure with IV conscious sedation as ASA class II designation. Safety time-out was performed to confirm patient ID, procedure to be performed and site of procedure. IV sedation was accomplished with a combination of 2mg of Versed was administered by the RN after DO order, titrated to patient comfort during the course of the procedure while the patient remained responsive to all verbal commands In the prone position, following sterile prep and drape of the lumbar region, the L4/5 translaminar space was identified fluoroscopically. The skin was anesthetized via a 25-gauge, 1.5inch needle with 1% lidocaine solution. At this point, a 22-gauge short bevel spinal needle was atraumatically introduced and a dvanced under fluoroscopic guidance into the region of the L4/5 translaminar space. Depth was confirmed on lateral view. Radiological data, including multiple fluoroscopic views of the lumbar spine, reveal a spinal needle at the L4/5 translaminar space. Lateral views then show placement of the needle in the epidural space. Subsequent views show contrast material flowing superiorly and inferiorly in the epidural space. No vascular or intrathecal uptake is observed. At this point, using loss of resistance technique with saline and air, the epidural space was entered. This was confirmed following negative aspiration with injection of approximately 1.5cc of Isovue 200, showing excellent epidural flow without vascular or intrathecal uptake. At this point, 1cc of 1% lidocaine solution combined with 2cc or 10mg of dexamethasone and 6mg betamethasone was injected without incident. The patient tolerated the procedure well without signs or symptoms of complications prior to transfer to the recovery area continued monitoring without incident. The patient was then transferred to the recovery area where they were observed for an appropriate period of time after the injection. The patient reported a VAS score of 6 prior to the procedure and a post- procedure VAS of 0. POST OP INSTRUCTIONS The patient was provided a Pain Log to continue to record their response to the target-specific procedure prior to follow-up visit with their referring physician. Additionally, specific post-injection care instructions and a contact number to our office were provided if concerns arise regarding possible complications associated with the procedure are suspected.
== END 2023-07-27 14:17 | disposition home or self-care (01) ==
LOC: RAD 11:57
PROVIDERS: PCP Internal Medicine; Referring Provider Physical Medicine & Rehabilitation; Visit Provider Physical Medicine & Rehabilitation
DX: M51.16 Intervertebral disc disorders with radiculopathy, lumbar region (principal); M48.061 Spinal stenosis, lumbar region without neurogenic claudication
CPT/HCPCS: 62323; J0702; J1100; J2250; J3490

== ENCOUNTER → 2024-06-10 12:03 | Outpatient (CLI) | payer MEDICARE, SELFPAY ==
--- NOTE | 2024-06-10 12:05 | DI.ECHO.S_ITS ---
[facility] : : [id number] : : [place] : : [id number] : : Phone: [phone] Echocardiogram Report + + :Name: KENDALL FRIED Study Date: 06/10/2024 Height: 66.5 in: :[facility] ReadingLocation: Weight: 240 lb : : Gender: Male BSA: 2.2 m2 : :: 1935 Age: 89 yrs BP: 158/72 mmHg: :Reason For Study: DILATED CARDIOMYOPATHY : :Ordering Physician: TABBY, : :ANDERS Performed By: Carmen Sal : :Referring: ANDERS DALAL : + + Interpretation Summary 1) Moderately enlarged left ventricle with low normal systolic function (EF 50-55%). 2) Normal right ventricular size and function. 3) The left atrium is severely dilated. 4) There is mild-moderate aortic regurgitation. 5) The ascending aorta is moderately to severely enlarged at 4.9cm. 6) Compared to the Echo done 06/05/2023, no significant change. Procedure: A two-dimensional transthoracic echocardiogram with color flow and Doppler was performed. The study quality was technically adequate. Comparison is made with the echocardiogram of 06/05/2023. The patient was in sinus rhythm with heart rates between 61-66 bpm during the exam. Left Ventricle: The left ventricle is moderately dilated. There is mild concentric left ventricular hypertrophy. The ejection fraction is estimated to be 50-55%. There are no focal wall motion abnormalities. Right Ventricle: The right ventricle is normal in size and function. Atria: The left atrium is severely dilated. The right atrium is borderline dilated. There is no Doppler evidence for an interatrial shunt. Mitral Valve: The mitral valve leaflets appear mildly thickened, but open well. There is trace mitral regurgitation. Aortic Valve: The aortic valve is not well visualized. The aortic valve is mildly calcified. There is mild aortic valve sclerosis. The peak aortic velocity is 2.2 m/sec. The aortic valve mean gradient is 10 mmHg. The calculated aortic valve area is 2.6 cm2. There is mild to moderate aortic regurgitation. Tricuspid Valve: The tricuspid valve leaflets are thin and pliable. There is mild tricuspid regurgitation. The right ventricular systolic pressure is estimated to be at least 27 mmHg based on an estimated right atrial pressure of 3 mm Hg. Pulmonic Valve: The pulmonic valve is not well seen, but is grossly normal. There is mild pulmonic regurgitation. Great Vessels: The aortic root is moderately dilated. The ascending aorta is moderate-severely enlarged. The IVC is of normal diameter and collapses greater than 50% with a sniff. This suggests a low right atrial pressure of 3 mm Hg. Pericardium/ Pleura There is no pericardial effusion. There is no pleural effusion. MMode/2D Measurements & Calculations LVIDd: 6.7 cm LVOT diam: 2.6 cm LVIDs: 5.6 cm Ao root diam: 4.8 cm FS: 16.6 % asc Aorta Diam: 4.9 cm IVSd: 1.2 cm Ao Arch Diam (Prox Trans): 3.7 cm LVPWd: 1.2 cm LV baker. diameter/BSA (cm/m^2): 3.1 LV sys. diameter/BSA (cm/m^2): 2.6 LA A2 area: 36.7 cm2 RA long axis: 7.7 cm LA A4 area: 35.6 cm2 RA area: 25.7 cm2 LA length (vol): 8.0 cm RA vol: 72.4 ml LA vol: 138.2 ml RA : 33.3 ml/m2 LA vol index: 63.5 ml/m2 IVC diam: 1.8 cm RVD1 (basal): 3.9 cm RVD2 (mid): 3.5 cm TAPSE: 1.9 cm Doppler Measurements & Calculations Ao V2 max: 224.3 cm/sec LVOT Max Jacobo: 112.3 cm/sec Ao V2 mean: 150.3 cm/sec LV V1 max P.0 mmHg Ao max P.8 mmHg LV V1 VTI: 28.8 cm Ao mean P.4 mmHg GENESIS(I,D): 3.0 cm2 Ao V2 VTI: 49.6 cm GENESIS(V,D): 2.6 cm2 sev ratio: 0.58 GENESIS indexed to BSA (cm^2/m^2): 1.4 AI P1/2t: 414.1 msec AI dec slope: 275.9 cm/sec2 MV E max jacobo: 52.3 cm/sec TR max jacobo: 275.5 cm/sec MV A max jacobo: 94.0 cm/sec TR max P.4 mmHg MV E/A: 0.56 PA V2 max: 99.6 cm/sec Med Peak E' Jacobo: 3.9 cm/sec PA V2 mean: 69.2 cm/sec E/E' med: 13.5 PA mean P.2 mmHg Lat Peak E' Jacobo: 6.5 cm/sec PA pr(Accel): 27.6 mmHg E/E' lat: 8.1 E/e' average: 10.8 MV dec time: 0.17 sec SV(OT): 147.5 ml Reading Physician:12:36 PM
== END ==
PROVIDERS: PCP Internal Medicine; Referring Provider Internal Medicine; Visit Provider Internal Medicine Cardiovascular Disease
DX: I08.2 Rheumatic disorders of both aortic and tricuspid valves (principal); I42.0 Dilated cardiomyopathy; I77.89 Other specified disorders of arteries and arterioles; I77.810 Thoracic aortic ectasia
CPT/HCPCS: 93306